=== PATIENT | female | born 1995 | race Caucasian/White ===

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

== ENCOUNTER 2019-07-28 23:19 | Observation (INO) | payer OTHER ==
[~2019-07-28] VITALS: Ht 157.5 cm; Wt 71.7 kg
== END 2019-07-29 00:55 | disposition home or self-care (01) ==
LOC: SPU 23:19
PROVIDERS: ADMIT Specialist; ATTEND Specialist
DX: O26.852 Spotting complicating pregnancy, second trimester (principal); Z3A.23 23 weeks gestation of pregnancy
CPT/HCPCS: G0378

== ENCOUNTER 2019-11-15 16:54 | Outpatient (CLI) | payer OTHER, SELFPAY | END 2019-11-15 22:22 | disposition home or self-care (01) | LOC: SLB 16:54 | PROVIDERS: ATTEND Specialist | DX: Z03.818 Encounter for observation for suspected exposure to other biological agents ruled out (principal) | CPT/HCPCS: C9803; U0003 ==

== ENCOUNTER 2019-11-20 20:44 | Inpatient (IN) | payer OTHER ==
[~2019-11-20] VITALS: Ht 162.6 cm; Wt 80.7 kg
[2019-11-20] MEDS ORDERED: LR 1,000 ML IV ONE (21:34)
[2019-11-20] MEDS ORDERED: LR 500 ML IV ONE (21:34)
[2019-11-20] MEDS ORDERED: OXYTOCIN/0.9 % SODIUM CHLORIDE 1,000 ML IV SCH (21:34)
[2019-11-20] MEDS ORDERED: DINOPROSTONE 10 MG SUPP VG ONE (21:45)
[2019-11-20] MEDS ORDERED: TERBUTALINE SULFATE 1 MG/ML VIAL SUBCUT ONE (21:45)
[2019-11-20 22:21] LABS: BASOPHILS # (AUTO) 0.1 K/uL (0.0-0.2); BASOPHILS % (AUTO) 0.6 % (0.0-2.0); EOSINOPHILS # (AUTO) 0.1 K/uL (0.0-0.4); EOSINOPHILS % (AUTO) 0.7 % (0.0-4.0); HEMATOCRIT 31.7 % (36-48); HEMOGLOBIN 10.3 g/dL (12.0-16.0); LYMPHOCYTES # (AUTO) 2.3 K/uL (1.0-5.5); LYMPHOCYTES % (AUTO) 18.9 % (20.5-51.5); MEAN CORPUSCULAR HEMOGLOBIN 25 pg (27-31); MEAN CORPUSCULAR HGB CONC 32 % (32-36); MEAN CORPUSCULAR VOLUME 78 fL (79.0-98.0); NEUTROPHILS % (AUTO) 71.8 % (40.0-70.0); PLATELET COUNT (AUTO) 384 K/uL (130-430); RED BLOOD CELL COUNT(AUTO) 4.06 MIL/uL (4.2-6.2); RED CELL DISTRIBUTION WIDTH 15.7 % (9.0-15.0); WHITE BLOOD COUNT (AUTO) 12.4 K/uL (4.8-10.8)
[2019-11-20] MEDS: LR 1,000 ML IV SCH (22:29)
[2019-11-20 23:05] VITALS: BP_SYST 139
[2019-11-21] MEDS ORDERED: MORPHINE SULFATE 10 MG/ML VIAL IVP PRN (01:45)
[2019-11-21] MEDS: LR 1,000 ML IV SCH ×3 (05:20→21:00)
[2019-11-21] MEDS ORDERED: fentaNYL CITRATE/PF 100 MCG/2 ML AMP ONE (17:59)
[2019-11-21] MEDS ORDERED: ROPIVACAINE HCL/PF 0.2% 200 ML ONE (17:59)
[2019-11-21] MEDS ORDERED: OXYTOCIN/0.9 % SODIUM CHLORIDE 1,000 ML IV SCH (18:50)
[2019-11-21] MEDS ORDERED: OXYTOCIN/0.9 % SODIUM CHLORIDE 1,000 ML IV ONE (18:50)
[2019-11-21] MEDS ORDERED: HYDROCORTISONE 0.5%, 28.35 GM TOPICAL CREAM TP PRN (19:00)
[2019-11-21] MEDS ORDERED: MEASLES,MUMPS&RUBELLA VACC/PF 12500 UNIT/0.5 ML VIAL SUBQ PRN (19:00)
[2019-11-21] MEDS ORDERED: OXYCODONE/ACETAMINOPHEN 5-325 TABLET PO PRN ×2 (19:00)
[2019-11-21] MEDS ORDERED: LANOLIN 7 GM OINT. TP PRN (19:00)
[2019-11-21] MEDS ORDERED: RHO(D) IMMUNE GLOBULIN/MALTOSE 1500 UNITS/1.3 ML (WINHRO) IM PRN (19:00)
[2019-11-21] MEDS ORDERED: DIPH-TET-PERTUS Vaccine 0.5 ML VIAL (ADACEL) I.M. PRN (19:00)
[2019-11-21] MEDS ORDERED: METHYLERGONOVINE MALEATE 0.2 MG TABLET PO PRN (19:00)
[2019-11-21] MEDS ORDERED: WITCH HAZEL LEAF 1 MED.PAD MED.PAD TP PRN (19:00)
[2019-11-21] MEDS ORDERED: DERMOPLAST SPRAY TP PRN (19:00)
[2019-11-21] MEDS ORDERED: HYDROcodone/ACETAMIN 5-325 MG TAB (NORCO/ VICODIN) PO PRN (19:00)
[2019-11-21] MEDS ORDERED: ANUSOL 1 EA SUPP.RECT (PREPARATION H) RC PRN (19:00)
[2019-11-21] MEDS ORDERED: SENNOSIDES/DOCUSATE SODIUM 1 TAB TABLET(SENOKOT-S) PO PRN (19:00)
[2019-11-21] MEDS ORDERED: TEMAZEPAM 15 MG CAPSULE PO PRN (21:00)
[2019-11-21] MEDS: IBUPROFEN 600 MG TABLET PO SCH (23:40)
[2019-11-22] MEDS: DOCUSATE SODIUM 100 MG CAPSULE PO PRN ×2 (05:35→18:06)
[2019-11-22] MEDS: IBUPROFEN 600 MG TABLET PO SCH ×3 (05:35→18:07)
[2019-11-22 07:22] LABS: BASOPHILS # (AUTO) 0.1 K/uL (0.0-0.2); BASOPHILS % (AUTO) 0.3 % (0.0-2.0); EOSINOPHILS % (AUTO) 0.1 % (0.0-4.0); HEMATOCRIT 29.5 % (36-48); HEMOGLOBIN 9.7 g/dL (12.0-16.0); LYMPHOCYTES # (AUTO) 2.4 K/uL (1.0-5.5); LYMPHOCYTES % (AUTO) 13.9 % (20.5-51.5); MEAN CORPUSCULAR HEMOGLOBIN 26 pg (27-31); MEAN CORPUSCULAR HGB CONC 33 % (32-36); MEAN CORPUSCULAR VOLUME 79 fL (79.0-98.0); MONOCYTES # (AUTO) 1.4 K/uL (0.0-1.0); MONOCYTES % (AUTO) 7.9 % (1.7-9.3); NEUTROPHILS # (AUTO) 13.7 K/uL (1.8-7.7); NEUTROPHILS % (AUTO) 77.8 % (40.0-70.0); PLATELET COUNT (AUTO) 335 K/uL (130-430); RED BLOOD CELL COUNT(AUTO) 3.73 MIL/uL (4.2-6.2); RED CELL DISTRIBUTION WIDTH 16.3 % (9.0-15.0); WHITE BLOOD COUNT (AUTO) 17.6 K/uL (4.8-10.8)
== END 2019-11-22 23:11 | disposition home or self-care (01) | DRG 807 ==
LOC: SPU 20:44 → OBSVTOIN 21:20 → SPU 11-21 23:00
PROVIDERS: ADMIT Specialist; ATTEND Specialist
PROC: 10E0XZZ Delivery of Products of Conception, External Approach (ICD-10-PCS; principal; 2019-11-21)
PROC: 0KQM0ZZ Repair Perineum Muscle, Open Approach (ICD-10-PCS; 2019-11-21)
PROC: 3E0R3BZ Introduction of Anesthetic Agent into Spinal Canal, Percutaneous Approach (ICD-10-PCS; 2019-11-21)
PROC: 00HU33Z Insertion of Infusion Device into Spinal Canal, Percutaneous Approach (ICD-10-PCS; 2019-11-21)
PROC: 3E0234Z Introduction of Serum, Toxoid and Vaccine into Muscle, Percutaneous Approach (ICD-10-PCS; 2019-11-22)
DX: O70.1 Second degree perineal laceration during delivery (principal); Z37.0 Single live birth; O77.0 Labor and delivery complicated by meconium in amniotic fluid; O99.214 Obesity complicating childbirth; E66.01 Morbid (severe) obesity due to excess calories; Z3A.40 40 weeks gestation of pregnancy; D50.8 Other iron deficiency anemias
CPT/HCPCS: 36415; 81002-TC; 85025; 86870; 86886; 86900; 86901; 94760; G0378; J2270; J2590; J2790; J3010; J7120